=== PATIENT | female | born 1955 | race Two or more races ===

== ENCOUNTER 2018-04-05 09:14 | Day surgery (SDC) | payer BC ==
[2018-03-28 11:47] LABS: HEMATOCRIT 42.5 % (36.0-47.0); HEMOGLOBIN 14.3 g/dL (12.0-15.5); MEAN CORPUSCULAR HEMOGLOBIN 28.4 pg (27.0-33.4); MEAN CORPUSCULAR HGB CONC 33.6 g/dL (32.0-36.0); MEAN CORPUSCULAR VOLUME 84 fl (80-97); PLATELET COUNT 157 10^3/uL (150-450); RED BLOOD COUNT 5.04 10^6/uL (3.72-5.28); RED CELL DISTRIBUTION WIDTH 14.1 % (11.5-14.0)
[~2018-04-05 09:14] MED LIST: ACETAMINOPHEN 325 MG TABLET PO PRN; LACTATED RINGERS 1000 ML IV PRN; LIDOCAINE 0.5% INJ-PF (5 MG/ML) 50 ML SDV SUBCUT PRN
[2018-04-05] MEDS ORDERED: ACETAMINOPHEN 325 MG TABLET ONE ×2 (10:45→14:47)
[2018-04-05] MEDS ORDERED: ONDANSETRON HCL INJ/PF 4 MG/2 ML SDV ONE (10:45)
[2018-04-05] MEDS ORDERED: PROPOFOL INJ 200 MG/20 ML VIAL IV ONE ×2 (12:52→13:36)
[2018-04-05] MEDS ORDERED: PROMETHAZINE HCL INJ 25 MG/1 ML VIAL IV PRN ×2 (13:34)
[2018-04-05] MEDS ORDERED: FENTANYL CITRATE INJ/PF 100 MCG/2 ML AMPUL IV PRN ×3 (13:34)
[2018-04-05] MEDS ORDERED: DIPHENHYDRAMINE HCL 50 MG/ML VIAL IV PRN (13:34)
[2018-04-05] MEDS ORDERED: MEPERIDINE HCL/PF INJ 25 MG/1 ML DISP.SYRIN IV PRN (13:34)
--- NOTE | 2018-04-05 14:08 | Discharge Summary ---
Discharge Summary (SDC) - Discharge Final Diagnosis: diverticulosis Date of Surgery: 04/05/18 Discharge Date: 04/05/18 Condition: Stable Treatment or Instructions: You may experience slight bleeding from rectum or abdominal discomfort shortly after the procedure. Resume regular diet and all home medications. Follow up at [facility] in 7-10 days. Call clinic sooner with questions/concerns. Referrals: MILES MOSQUEDA MD [Primary Care Provider] - Discharge Diet: As Tolerated Discharge Activity: Walk Frequently Report the Following to Your Physician Immediately: Nausea, Vomiting, Increase in Pain, Fever over 101 Degrees
--- NOTE | 2018-04-05 14:10 | Operative Report ---
Operative Report DATE OF SURGERY: 04/05/18 PREOPERATIVE DIAGNOSIS: 1. Change in bowel habits. 2. Pandiverticulosis POSTOPERATIVE DIAGNOSIS: Same OPERATION: Total colonoscopy cecum with photodocumentation SURGEON: KIARA SALAZAR ANESTHESIA: LMAC TISSUE REMOVED OR ALTERED: None COMPLICATIONS: None ESTIMATED BLOOD LOSS: None INTRAOPERATIVE FINDINGS: See below PROCEDURE: Obtaining informed consent the patient was taken from the preoperative holding area to the main endoscopy suite where monitoring devices were attached to the patient. Plan and surgical timeout were conducted The patient was placed in the left lateral decubitus position with knees to chest. A perianal examination was performed. There was no visible or palpable anorectal pathology. Sphincter tone was felt to be normal. The flexible adult colonoscope was advanced through the anal rectal canal, all the way to the cecum. Visualization of the cecum was achieved and the ileocecal valve, the appendiceal orifice and transillumination of the anterior abdominal wall. Photos were taken this was an excellent study on the well- prepped bowel. The colonoscope was withdrawn slowly and methodically checked and the mucosa carefully. There was no evidence of tumor, stricture, bleeding or polyp. There were multiple diverticulosis of the right left and sigmoid colon . The scope was slowly withdrawn through the anal rectal canal. Complete visualization of the rectum was achieved with photodocumentation. The scope was withdrawn to the patient's anus. The patient tolerated the procedure well and was taken to the recovery area in stable condition. Per surveillance guidelines, patient be appropriate candidate for follow-up 10 years as she is at average risk for colorectal carcinoma.
[2018-04-05 15:25] VITALS: BP 128/67
== END 2018-04-05 15:15 | disposition home or self-care (01) ==
LOC: OROUT 09:14
PROVIDERS: ATTEND Surgery
DX: K57.30 Diverticulosis of large intestine without perforation or abscess without bleeding (principal); R63.4 Abnormal weight loss; J45.909 Unspecified asthma, uncomplicated; I38 Endocarditis, valve unspecified; K92.1 Melena; M19.90 Unspecified osteoarthritis, unspecified site; R73.03 Prediabetes; Z68.28 Body mass index [BMI] 28.0-28.9, adult; Z88.6 Allergy status to analgesic agent; Z88.5 Allergy status to narcotic agent; Z87.891 Personal history of nicotine dependence; Z85.3 Personal history of malignant neoplasm of breast
CPT/HCPCS: 45378; 36415; 85027; J2405; J2704; 811